=== PATIENT | female | born 1985 | race Caucasian/White ===

== ENCOUNTER 2018-01-12 15:02 | Emergency (ER) | payer BC, OTHER ==
[~2018-01-12 15:02] MED LIST: Sodium Chloride 0.9% 1,000 ML BAG ONE; Sodium Chloride 0.9% 100 ML BAG ONE
[2018-01-12] MEDS ORDERED: Ondansetron ODT 4 MG TAB ONE (15:27)
[2018-01-12 15:38] LABS: Pregu Control Background? CLEAR/WHITE (CLR/WHITE); Pregu Control Bar Appear? YES (CONTROL BAR); Specific Gravity 1.031 (1.002-1.036)
[2018-01-12 15:39] LABS: Pregnancy Test - Urine (BHCG) POSITIVE (Negative)
[2018-01-12] MEDS ORDERED: Promethazine HCl 25 MG/ML VIAL ONE (15:40)
[2018-01-12 15:45] LABS: Clarity Hazy (Clear)
[2018-01-12 15:46] LABS: Bacteria/HPF 2+ HPF (None Seen); Bilirubin Moderate (Negative); Blood, Urine Negative (Negative); Glucose, Urine (Dipstick) Negative (Negative); Leukocyte Negative (Negative); Nitrite Negative (Negative); Protein, Urine (Dipstick) 30 mg/dL (Neg-Trace); RBC/HPF 0-3 HPF (0-3); Specific Gravity, Urine 1.031 (1.002-1.036); WBC/HPF 0-3 HPF (0-3); pH, Urine 5.5 (5.0-9.0)
[2018-01-12 16:03] LABS: #Basophils 0.1 thou/uL (0.0-0.2); #Eosinphils 0.1 thou/uL (0.0-0.7); #Lymphocytes 2.2 thou/uL (1.20-3.40); #Monocytes 0.8 thou/uL (0.11-0.59); #Neutrophils 4.6 thou/uL (1.40-6.50); %Basophils 1.4 % (0.0-1.0); %Eosinophils 1.7 % (0.0-10.0); %Lymphocytes 27.6 % (21.0-51.0); %Monocytes 10.7 % (0.0-10.0); %Neutrophils 58.6 % (42.0-75.0); Hemoglobin 13.4 g/dL (12.0-16.0); Mean Corpuscular HGB CONC 33.1 g/dL (32.0-36.0); Mean Corpuscular Volume 93.7 fL (78.0-98.0); Mean Platelet Volume 7.5 fL (7.4-10.4); Platelet Count 292 thou/uL (130-400); RBC Distribution Width 11.2 % (11.5-14.5); Red Blood Cell (RBC) Count 4.33 mill/uL (4.20-5.40); White Blood Cell (WBC) Count 7.9 thou/uL (4.8-10.8)
[2018-01-12 16:17] LABS: ALT (SGPT) 14 U/L (8-55); AST (SGOT) 17 U/L (5-34); Albumin 4.5 g/dL (3.5-5.0); Alkaline Phosphatase 38 U/L (40-150); Anion Gap 15 mmol/L (10-20); BUN (Urea Nitrogen) 11 mg/dL (7.0-18.7); Bilirubin, Total 0.8 mg/dL (0.2-1.2); Calc. Creatinine Clearance 0 mL/min (70-130); Calcium 9.7 mg/dL (7.8-10.44); Carbon Dioxide 23 mmol/L (22-29); Chloride 101 mmol/L (98-107); Estimated GFR-MDRD Greater than 90; Globulin 3.1 g/dL (2.4-3.5); Glucose 92 mg/dL (70-105); Protein, Total 7.6 g/dL (6.0-8.3); Sodium 135 mmol/L (136-145)
[2018-01-12] MEDS ORDERED: Metoclopramide HCl 10 MG/2 ML VIAL ONE (17:44)
[2018-01-12] MEDS ORDERED: diphenhydrAMINE 50 MG/ML VIAL ONE (17:44)
== END 2018-01-12 18:32 | disposition home or self-care (01) ==
LOC: MADERS 15:02
DX: O21.9 Vomiting of pregnancy, unspecified (principal); O99.89 Other specified diseases and conditions complicating pregnancy, childbirth and the puerperium; M19.90 Unspecified osteoarthritis, unspecified site; Z79.82 Long term (current) use of aspirin; Z79.899 Other long term (current) drug therapy
CPT/HCPCS: 36415; 80053; 81003; 81015; 81025; 84702; 85025; 96361; 96365; 96375; J1200; J2550; J2765; J7050; Q0162

== ENCOUNTER 2021-03-20 18:33 | Emergency (ER) | payer BC ==
[2021-03-20] MEDS ORDERED: HYDROcodone/Acetaminophen 10/325 mg Tablet ONE (19:54)
== END 2021-03-20 20:32 | disposition home or self-care (01) ==
LOC: MADERS 18:33
DX: S52.125A Nondisplaced fracture of head of left radius, initial encounter for closed fracture (principal); S00.83XA Contusion of other part of head, initial encounter; I10 Essential (primary) hypertension; F17.210 Nicotine dependence, cigarettes, uncomplicated; W10.9XXA Fall (on) (from) unspecified stairs and steps, initial encounter
CPT/HCPCS: 70486